=== PATIENT | male | born 1955 | race Caucasian/White ===

== ENCOUNTER 2016-11-18 12:47 | Emergency (ER) | payer BC ==
[~2016-11-18] VITALS: Ht 180.3 cm; Wt 72.0 kg
[~2016-11-18 12:47] MED LIST: ALLO100T PO; AZIT500T3 PO; IBUP-1542 PO; LEVO750T25 PO; MAG355OR15 PO; ONDA4TAB35 PO; PSEU60TA21 PO; TAMS0.4C2 PO
[2016-11-18 12:49] VITALS: Ht 180.3 cm; Wt 72.0 kg
--- NOTE | 2016-11-18 13:02 | ERA ---
ER Documentation Chief Complaint Date/Time DATE: 11/18/16 TIME: 13:02 Chief Complaint chest pain HPI The patient is a 61-year-old male, presenting to the ER because of intermittent chest pain for the last 2 weeks. Her chest pain is localized to the left side of the chest, radiating to the right side of the chest. He took aspirin 81 mg p.o. and was given 2 nitroglycerin when he was at his office well he was transferred to the ER by ambulance The pain has been worse for the last 2 days, no aggravating or relieving factor. Thought it might be anxiety attack because he has been under a lot of stress. He drank 3 beers last night and is a recovering alcoholic. He denies syncope, near syncope, seizure, dyspnea, abdominal pain, vomiting, dysuria, diarrhea. He does not smoke drinks socially denies illicit drug Past medical history: BPH, anxiety Past medical history: None ROS All systems reviewed and are negative except as per history of present illness. Medications Home Meds Reported Medications Atenolol* (Atenolol*) 50 Mg Tablet, 50 MG PO DAILY, #30 TAB 11/18/16 Nitroglycerin* (Nitroglycerin* SL) 0.4 Mg Tab.subl, 0.4 MG SL Q5MIN Y for CHEST PAIN, BOTTLE 11/18/16 Ergocalciferol (Vitamin D2) (VITAMIN D2) 50,000 Unit Capsule, 66833 UNIT PO WEEKLY, CAP 11/18/16 Allopurinol* (Allopurinol*) 100 Mg Tablet, 100 MG PO DAILY, TAB 10/05/15 Discontinued Reported Medications Tamsulosin Hcl* (Tamsulosin Hcl*) 0.4 Mg Cap.er.24h, 0.4 MG PO HS, CAP 10/05/15 Pseudoephedrine Hcl* (Sudogest*) 60 Mg Tablet, 60 MG PO Q6 Y for CONGESTION, TAB 10/05/15 Ibuprofen* (Ibuprofen*) 600 Mg Tablet, 600 MG PO Q6H Y for PAIN AND/OR INFLAMMATION, TAB 10/05/15 Levofloxacin* (Levaquin*) 750 Mg Tablet, 750 MG PO DAILY for 5 Days, TAB PER PT STARTED TX ON 10-02-15 10/05/15 Discontinued Scripts Ondansetron Hcl* (Zofran* ODT) 4 mg -ODT Tab.disper, 4 MG PO Q6 Y for NAUSEA AND /OR VOMITING, #10 TAB Prov:MARVELGEORGE Missy [employer]IV[employer] 02/26/16 Mag Hydrox/Al Hydrox/Simeth (Maalox Ms Liquid) 360 Ml Oral.susp, 2 TSP PO TID, # 24 OZ Prov:KAYLA COLON MD 10/05/15 Azithromycin* (Zithromax*) 500 Mg Tablet, 500 MG PO DAILY for 3 Days, TAB Prov:KAYLA COLON MD 10/05/15 Allergies Allergies: Coded Allergies: No Known Drug Allergies (Verified Allergy, Mild, 11/18/16) PMhx/Soc History of Surgery: No Anesthesia Reaction: No Hx Neurological Disorder: No Hx Respiratory Disorders: No Hx Cardiac Disorders: No Hx Psychiatric Problems: No Hx Miscellaneous Medical Probl: No Hx Alcohol Use: No Hx Substance Use: No Hx Tobacco Use: No Physical Exam Vitals Vital Signs Date Time Temp Pulse Resp B/P Pulse Ox O2 Delivery O2 Flow Rate FiO2 11/18/16 17:00 98.4 18 18 131/84 99 Room Air 11/18/16 13:33 98.4 76 20 131/91 100 Room Air 11/18/16 12:49 97.8 78 20 134/82 99 Physical Exam Const: No acute distress. Anxious Head: Atraumatic. Eyes: Normal Conjunctiva. ENT: Normal External Ears, Nose and Mouth. Neck: Full range of motion. No meningismus. Resp: Clear to auscultation bilaterally. Cardio: Regular rate and rhythm, no murmurs. Abd: Soft, non distended, normal bowel sounds, non tender. Skin: No petechiae or rashes. Back: No midline or flank tenderness. Ext: No cyanosis, or edema. Neur: Awake and alert. No focal deficit Psych: Normal Mood and Affect. Result Diagram: 11/18/16 1305 Results 24 hrs Laboratory Tests Test 11/18/16 13:05 11/18/16 14:30 11/18/16 15:45 White Blood Count 9.210^3/ul Red Blood Count 4.3810^6/ul Hemoglobin 15.4g/dl Hematocrit 43.6% Mean Corpuscular Volume 99.5fl Mean Corpuscular Hemoglobin 35.2pg Mean Corpuscular Hemoglobin Concent 35.3g/dl Red Cell Distribution Width 11.9% Platelet Count 95457^3/UL Mean Platelet Volume 10.1fl Neutrophils % 67.5% Lymphocytes % 19.6% Monocytes % 10.2% Eosinophils % 1.6% Basophils % 0.6% Nucleated Red Blood Cells % 0.0/100WBC Neutrophils # 6.210^3/ul Lymphocytes # 1.810^3/ul Monocytes # 0.910^3/ul Eosinophils # 0.210^3/ul Basophils # 0.110^3/ul Nucleated Red Blood Cells # 0.010^3/ul Prothrombin Time 12.7Sec Prothrombin Time Ratio 1.0 INR International Normalized Ratio 0.95 Activated Partial Thromboplast Time 28.7Sec Total Bilirubin 1.1mg/dl Direct Bilirubin 0.00mg/dl Indirect Bilirubin 1.1mg/dl Aspartate Amino Transf (AST/SGOT) 43IU/L Alanine Aminotransferase (ALT/SGPT) 22IU/L Alkaline Phosphatase 81IU/L Troponin I < 0.012ng/ml < 0.012ng/ml Total Protein 7.7g/dl Albumin 4.6g/dl Lipase 68U/L Ethyl Alcohol Level < 10.0mg/dl Urine Opiates Screen Negative Urine Barbiturates Negative Urine Amphetamines Screen Negative Urine Benzodiazepines Screen Negative Urine Cocaine Screen Negative Urine Cannabinoids Negative Current Medications Medications (Trade) Dose Ordered Sig/Meggan Route PRN Reason Start Time Stop Time Status Last Admin Dose Admin Lorazepam 1 mg 1 mg ONCE ONCE PO 11/18/16 13:30 11/18/16 13:31 DC 11/18/16 14:14 Sodium Chloride (NS) 1,000 ml @ 1,000 mls/hr Q1H ONCE IV 11/18/16 14:30 11/18/16 15:29 DC 11/18/16 14:15 Procedures/MDM EKG: Read by emergency physician 1 PM Rate/Rhythm: Normal Sinus Rhythm 76 beats/min QRS, ST, T-waves: No ST elevation, no T inversion Impression: Normal EKG EKG: Read by emergency physician 3:28 PM Rate/Rhythm: Normal Sinus Rhythm 72 beats/min QRS, ST, T-waves: No ST elevation, no T inversion Impression: Normal EKG [place] [id number] Radiology Main Line: [phone] DIAGNOSTIC IMAGING REPORT Patient: MOHAMUD DAWSON : 1955 Age: 61 Sex: M [id number] DOS: 11/18/16 1250 Ordering MD: QUYNH ZABALA MD Location: E/R Room/Bed: PROCEDURE: XR Chest. CLINICAL INDICATION: Chest pain TECHNIQUE: Chest AP portable. COMPARISON: 10/05/2015 FINDINGS: The mediastinal structures are unremarkable. The heart is normal in size and configuration. The pulmonary vascularity is normal. The lung elaine are unremarkable. No consolidation is identified. The pleural spaces are unremarkable. The axial skeleton is unremarkable. IMPRESSION: No active intrathoracic disease. RPTAT: QQ .Dinesh Ng MD, Date Time Electronically viewed and signed by .Dinesh Ng MD, on 11/18/2016 13:49 .A/ CC: QUYNH ZABALA MD MEDICAL MAKING DECISION: The patient is a 61-year-old male, presenting with acute chest pain of unclear etiology, most likely due to acute anxiety, acute dehydration. He was treated 1 L normal saline for acute dehydration Ativan 1 mg p.o. for acute anxiety with good response The differential diagnoses considered include but are not limited to acute coronary syndrome, acute myocardial infarction, pericarditis, pulmonary embolism , aortic dissection, pneumonia, pleural effusion, pneumothorax, GERD, chest wall pain. Departure Diagnosis: Primary Impression: Chest pain Additional Impression: Anxiety Condition: Good Comments The patient presents with chest pain and I considered pulmonary embolism, aortic dissection, pneumothorax among other diagnoses. Evaluation for acute coronary syndrome was performed. The HEART score (www.mdcalc.com) was utilized for risk stratification and found to be <= 3. Repeat EKG and troponin @ 3 hours were unchanged. Based on this evaluation the patients risk of major adverse cardiac events is <1%. Shared decision making occurred with patient and the decision has been made to discharge the patient for outpatient evaluation and functional study within 72 hours. The patient's blood pressure was elevated (>120/80) but appears stable without evidence of hypertension emergency or urgency. The patient was counseled about the risks of hypertension and urged to pursue outpatient monitoring and therapy within a week with their primary care physician. QUYNH ZABALA MD Nov 18, 2016 13:02
[2016-11-18 13:14] LABS: ADD SCAN DIFF NO
[2016-11-18 13:19] LABS: BASOPHIL # 0.1 10^3/ul (0.0-0.1); BASOPHILS % 0.6 % (0.0-2.0); EOSINOPHILS # 0.2 10^3/ul (0.0-0.5); EOSINOPHILS % 1.6 % (0.0-7.0); HEMATOCRIT 43.6 % (42.0-52.0); HEMOGLOBIN 15.4 g/dl (14.0-18.0); LYMPHOCYTES # 1.8 10^3/ul (0.8-2.9); LYMPHOCYTES % 19.6 % (15.0-51.0); MEAN CORPUSCULAR HEMOGLOBIN 35.2 pg (29.0-33.0); MEAN CORPUSCULAR HGB CONC 35.3 g/dl (32.0-37.0); MEAN CORPUSCULAR VOLUME 99.5 fl (82.0-101.0); MEAN PLATELET VOLUME 10.1 fl (7.4-10.4); MONOCYTE # 0.9 10^3/ul (0.3-0.9); MONOCYTES % 10.2 % (0.0-11.0); NEUTROPHIL # 6.2 10^3/ul (1.6-7.5); NEUTROPHILS % 67.5 % (39.0-77.0); PLATELET COUNT 293 10^3/UL (140-415); RED BLOOD COUNT 4.38 10^6/ul (4.70-6.10); RED CELL DISTRIBUTION WIDTH 11.9 % (11.5-14.5); WHITE BLOOD COUNT 9.2 10^3/ul (4.8-10.8)
[2016-11-18] MEDS ORDERED: LORAZEPAM 1 MG TAB PO ONE (13:30)
[2016-11-18 13:31] LABS: INR 0.95; PROTIME 12.7 Sec (12.2-14.2)
[2016-11-18 13:32] LABS: PARTIAL THROMBOPLASTIN TIME 28.7 Sec (25.0-35.0)
[2016-11-18] MEDS ORDERED: ERGO500037 PO (13:42)
[2016-11-18] MEDS ORDERED: ATEN50TA PO (13:43)
[2016-11-18] MEDS ORDERED: NITR0.4T6 SL (13:43)
--- NOTE | 2016-11-18 13:49 | RADRPT ---
PROCEDURE: XR Chest. CLINICAL INDICATION: Chest pain TECHNIQUE: Chest AP portable. COMPARISON: 10/05/2015 FINDINGS: The mediastinal structures are unremarkable. The heart is normal in size and configuration. The pu lmonary vascularity is normal. The lung elaine are unremarkable. No consolidation is identified. The pleural spaces are unremarkable. The axial skeleton is unremarkable. IMPRESSION: No active intrathoracic disease. RPTAT: QQ .Dinesh Ng MD, MD Date Time Electronically viewed and signed by .Dinesh Ng MD, MD on 11/18/2016 13:49 .A/
[2016-11-18] MEDS ORDERED: SOD CHLORIDE 0.9% 1,000 ML IV ONE (14:30)
[2016-11-18 14:44] LABS: ALBUMIN 4.6 g/dl (3.3-4.9); BILIRUBIN,INDIRECT 1.1 mg/dl (0-1.1); BILIRUBIN,TOTAL 1.1 mg/dl (0.2-1.3); TOTAL PROTEIN 7.7 g/dl (6.1-8.1)
[2016-11-18 15:02] LABS: BENZODIAZEPINES Negative (NEGATIVE)
[2016-11-18 15:03] LABS: CANNABINOIDS Negative (NEGATIVE)
[2016-11-18 15:10] LABS: BARBITURATES Negative (NEGATIVE); COCAINE Negative (NEGATIVE); OPIATES Negative (NEGATIVE)
[2016-11-18 17:00] VITALS: BP 131/84; PULSE 18; RESP 18; TEMP 98.4
== END 2016-11-18 17:15 | disposition home or self-care (01) ==
LOC: E/R 12:47
DX: R07.9 Chest pain, unspecified (principal); F41.9 Anxiety disorder, unspecified; I10 Essential (primary) hypertension
CPT/HCPCS: 71010; 80076; 80306; 80307; 83690; 84484; 85025; 85610; 85730; 93005; 96360; 99285; J7030

== ENCOUNTER 2018-06-12 05:22 | Emergency (ER) | END 2018-06-12 09:57 | disposition home or self-care (01) ==

== ENCOUNTER 2019-06-07 11:43 | Emergency (ER) | payer BC, OTHER ==
[~2019-06-07] VITALS: Ht 170.2 cm; Wt 80.0 kg
[~2019-06-07 11:43] MED LIST changes: +ATEN50TA PO; -AZIT500T3 PO; +ERGO500013 PO; -IBUP-1542 PO; -LEVO750T25 PO; -MAG355OR15 PO; +MECL12.574 PO; +NITR0.4T32 SL; -ONDA4TAB35 PO; -PSEU60TA21 PO; -TAMS0.4C2 PO
[2019-06-07 11:45] VITALS: Ht 170.2 cm; Wt 80.0 kg
[2019-06-07] MEDS ORDERED: PROCHLORPERAZINE 10 MG INJ IV STA (13:50)
[2019-06-07] MEDS ORDERED: SOD CHLORIDE 0.9% 1,000 ML IV STA (13:50)
[2019-06-07] MEDS ORDERED: DIAZEPAM 10 MG/2 ML SYG IV ONE (14:00)
[2019-06-07 14:57] VITALS: BP 119/63; PULSE 70; RESP 20
== END 2019-06-07 15:23 | disposition home or self-care (01) ==
LOC: E/R 11:43
DX: R42 Dizziness and giddiness (principal); I10 Essential (primary) hypertension
CPT/HCPCS: 36415; 80048; 85025; 93005; 96374; 96375; 99284; J0780; J3360; J7030